=== PATIENT | male | born 1970 | race Caucasian/White ===

== ENCOUNTER 2023-12-02 08:33 | Day surgery (SDC) | payer BC ==
[~2023-12-02] VITALS: Ht 182.9 cm; Wt 134.0 kg
[~2023-12-02 08:33] MED LIST: IBLOOD GLUCOSE TEST STRIP 1 EA TEST VI PRN; LACTATED RINGER'S 1,000 ML IV SCH; LIDOCAINE HCL 1% 5 ML SDV INJ ONE; METFORMIN HCL1000 MG PO; MIDAZOLAM HCL 5 MG/5 ML VIAL IV PRN; fentaNYL citrate 100 MCG/2 ML VIAL IV PRN
[2023-12-02 09:13] VITALS: BP 130/89
[2023-12-02] MEDS ORDERED: GLIMEPIRIDE2 MG PO (09:16)
[2023-12-02] MEDS ORDERED: JARDIANCE25 MG PO (09:16)
[2023-12-02] MEDS ORDERED: MIDAZOLAM HCL 5 MG/5 ML VIAL ONE (11:06)
[2023-12-02] MEDS ORDERED: fentaNYL citrate 100 MCG/2 ML VIAL ONE (11:06)
--- NOTE | 2023-12-02 12:00 | NUR ---
12/02/23 1200 Frida Mckenna 1155 PT ARRIVES TO THE PACU WITH A NC AT 3L. PT HAS EYES OPEN AND RESPONDS ACCORDINGLY TO QUESTIONS. PT IS ENCOURAGED TO PASS GAS AND EDUCATED ABOUT PROCEDURE PROCESS. PT RESTING IN BED WITH EYES CLOSED. VSS. RESP EVEN AND UNLABORED. BCG- 161.
[2023-12-02 12:19] VITALS: BP 132/84
--- NOTE | 2023-12-02 14:42 | OR ---
[facility] [address], [place] [address] Signed DATE OF OPERATION: 12/02/2023 SURGEON: Ernie Chinchilla MD PREOPERATIVE DIAGNOSES: 1. Colon screening. 2. Possible family history of colon cancer (father). POSTOPERATIVE DIAGNOSIS: Small polyp, rectum. PROCEDURE: Total colonoscopy to cecum with cold morcellation polypectomy x1. ANESTHESIA: Intravenous sedation, fentanyl 100 mcg and Versed 7 mg. 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 He is a patient of [facility]. He has been referred for colonoscopy on the basis of his age of 52 years. He has no symptoms of bleeding, diarrhea, or constipation, but does have probable history of colon cancer in his father, it is not entirely certain, it is admitted. He is admitted at this time to undergo colonoscopy. He understands the risk of bleeding, infection, and perforation. FINDINGS: The prep was good. Complete colonoscopy was undertaken of the cecum with full intubation of the cecum. There was a single small polyp of the rectum, which was excised with cold morcellation technique. DESCRIPTION OF PROCEDURE: The patient was brought to the endoscopy suite and placed in lateral decubitus position given intravenous sedation to the point of slurred speech and nystagmus. Digital rectal examination was normal. An Olympus video colonoscope was passed into the rectum and manipulated throughout the colon ultimately intubating the cecum itself. The ileocecal valve and appendiceal orifice were normal. The scope was carefully withdrawn and examination throughout upon withdrawal of scope showed no sign of abnormality into the rectum, where a single small polyp was noted. Most likely, it was an adenoma, it was excised with cold morcellation Electronically Signed By: ERNIE CHINCHILLA MD 12/02/23 1442 PATIENT NAME: YAIR NOLEN OPERATIVE REPORT DATE OF : 74 REPORT #: [id number] PHYSICIAN: ERNIE CHINCHILLA MD PCP: KEM WELLS PA-C REPORT IS CONFIDENTIAL AND NOT TO BE RELEASED WITHOUT AUTHORIZATION [facility] [address], [place] [address] Signed technique. Retroflexed view was otherwise normal. The scope was removed. The patient taken to the recovery room in good condition. CONCLUDING DIAGNOSIS: Polyp of rectum x1. PLAN: Recommend repeat colonoscopy in no more than five years, anywhere between 3 and 5 years or sooner if symptoms should occur. He will return to the ongoing care of [facility]. MD ELISABETH Montaño/CRESCENCIOL /[id number] Copies: ~ Electronically Signed By: ERNIE CHINCHILLA MD 12/02/23 1442 PATIENT NAME: YAIR NOLEN OPERATIVE REPORT DATE OF : 74 REPORT #: [id number] PHYSICIAN: ERNIE CHINCHILLA MD PCP: KEM WELLS PA-C REPORT IS CONFIDENTIAL AND NOT TO BE RELEASED WITHOUT AUTHORIZATION
--- NOTE | 2023-12-06 13:32 | PATH ---
[facility] [address], [place] [address] Signed SPECIMEN(S): A RECTAL POLYP SPECIMEN SOURCE: A. RECTAL POLYP CLINICAL HISTORY: Initial screening colonoscopy FINAL PATHOLOGIC DIAGNOSIS: Rectal polyp, biopsies: - Hyperplastic colonic mucosa. AMB MICROSCOPIC EXAMINATION: Histologic sections of all submitted blocks are examined by light microscopy. These findings, together with the gross examination, support the pathologic diagnosis. GROSS DESCRIPTION: The specimen, labeled and designated "Carlos, rectal polyp," is received in formalin and consists of two townsend soft tissue fragments, ranging from 0.1-0.2 cm. Entirely submitted in (A1). JS (under the direct supervision of a pathologist) The Gross Description was prepared using a voice recognition system. The report was reviewed for accuracy; however, sound-alike word errors, addition and/or deletions may occur. If there is any question about this report, please contact Client Services. ADDITIONAL NOTES: Immunohistochemical and/or in situ hybridization studies if performed in this case included appropriate positive controls that reacted as expected. This test was developed and its performance characteristics determined by [facility]. It has not been cleared or approved by the U.S. Food and Drug Administration. The FDA has determined that such clearance or approval is not necessary. This test is used for clinical purposes. It should not be regarded as investigational or for research. [facility] is certified under the Clinical Laboratory Improvement Amendments of 1988 (CLIA) as qualified to perform high complexity clinical laboratory testing. PATIENT NAME: YAIR NOLEN PATHOLOGY DATE OF : 74 REPORT #: [id number] PHYSICIAN: MAVERICK ESPINOZA PCP: KEM WELLS PA-C REPORT IS CONFIDENTIAL AND NOT TO BE RELEASED WITHOUT AUTHORIZATION [facility] [address] [facility] [place] [place] [address] Signed PERFORMING LABORATORY: Technical component was performed by [facility], [address] [place] [address] (CLIA# [id number]). Professional interpretation was performed by [facility] [address] [id number] Diagnostician: Keshia Choudhury MD Pathologist Electronically Signed 12/06/2023 Copies: ~ PATIENT NAME: YAIR NOLEN PATHOLOGY DATE OF : 74 REPORT #: [id number] PHYSICIAN: MAVERICK ESPINOZA PCP: KEM WELLS PA-C REPORT IS CONFIDENTIAL AND NOT TO BE RELEASED WITHOUT AUTHORIZATION
== END 2023-12-02 12:37 | disposition home or self-care (01) ==
LOC: OPS 08:33 → DS 08:33 → OPS 10:20 → DS 10:20 → OPS 12:37
PROVIDERS: ATTEND Surgery
PROC: 0DBP8ZZ Excision of Rectum, Via Natural or Artificial Opening Endoscopic (ICD-10-PCS; principal; 2023-12-02 10:20)
DX: Z12.11 Encounter for screening for malignant neoplasm of colon (principal); K62.1 Rectal polyp
CPT/HCPCS: 99153; G0500; J2250; J3010; J7121